=== PATIENT | male | born 1970 | race Caucasian/White ===

== ENCOUNTER 2021-07-24 07:06 | Day surgery (SDC) | payer OTHER ==
[~2021-07-24] VITALS: Ht 185.4 cm; Wt 116.1 kg
[2021-07-24] MEDS ORDERED: fentaNYL citrate 0.05 MG/ML VIAL ONE (09:05)
[2021-07-24] MEDS ORDERED: LIDOCAINE 2% 100 MG/5 ML UJET TP ONE ×2 (09:05)
[2021-07-24] MEDS ORDERED: fentaNYL citrate 0.05 MG/ML VIAL IVP ONE (10:10)
== END 2021-07-24 10:00 | disposition home or self-care (01) ==
LOC: MDS 07:06 → MMU 07:07 → MDS 10:00
PROVIDERS: ATTEND Internal Medicine Gastroenterology
DX: Z12.11 Encounter for screening for malignant neoplasm of colon (principal); I10 Essential (primary) hypertension; F41.9 Anxiety disorder, unspecified; E78.00 Pure hypercholesterolemia, unspecified; Z20.822 Contact with and (suspected) exposure to COVID-19; Z79.899 Other long term (current) drug therapy
CPT/HCPCS: 45378; J3010